=== PATIENT | male | born 1950 | race Caucasian/White ===

== ENCOUNTER → 2017-11-04 | Outpatient (CLI) | payer OTHER, MEDICARE ==
[~2017-11-04] MED LIST: [UNRECOGNIZED DRUG - REMARK]; [UNRECOGNIZED DRUG - REMARK]
== END | disposition home or self-care (01) ==
LOC: CDC 11:12
DX: Z01.810 Encounter for preprocedural cardiovascular examination (principal); N21.0 Calculus in bladder; R94.31 Abnormal electrocardiogram [ECG] [EKG]
CPT/HCPCS: 93000